=== PATIENT | female | born 1975 | race Caucasian/White ===

== ENCOUNTER 2024-12-09 07:48 | Emergency (ER) | payer OTHER, SELFPAY ==
--- NOTE | ~2024-12-09 | XR_ITS ---
CLINICAL HISTORY: fall and shovel hit r ankle 3 view right ankle Comparison: None Findings: There is widening of the medial ankle mortise. There is subtle cortical lucency along the posterior malleolus. Several small 1 mm linear ossifications are seen adjacent to the lateral malleolus. Subcutaneous edema is seen in the medial ankle and distal leg. IMPRESSION: 1. Subtle cortical lucency along the posterior malleolus, which may represent a fracture. Recommend CT examination of the right ankle for further evaluation. 2. Several small 1 mm linear ossifications adjacent to the lateral malleolus. This can be assessed on the CT exam. 3. Widening of the medial ankle mortise suggestive of ligamentous injury. This document has been electronically signed by: Kris Vance on 12/09/2024 08:26:27
--- NOTE | ~2024-12-09 | CT_ITS ---
CLINICAL HISTORY: pain s p fall CT of the right ankle without contrast Comparison: 12/09/2024 Findings: The dorsal ossification adjacent to the distal tibia is separate from the tibia and may represent sequelae of previous injury. There are no acute fractures. There is widening of the ankle mortise suggesting syndesmotic injury better evaluated with MRI. Regional soft tissue structures are otherwise unremarkable. IMPRESSION: Findings suggesting syndesmotic injury better evaluated with MRI. Correlate clinically for instability. This document has been electronically signed by: Zack Chaudhari MD on 12/09/2024 10:09:19
[2024-12-09 07:57] VITALS: BP 128/52; PULSE 85; RESP 19; TEMP 36.6; O2SAT 99; BMI 23.5
--- NOTE | 2024-12-09 09:17 | ED.LOWEXIN ---
HPI - Extremity Injury (Lower) General Chief Complaint: Extremity Injury, Lower Stated Complaint: fall 12/09, R foot pain Time Seen by Provider: 12/09/24 09:03 Source: patient and RN notes reviewed Mode of arrival: ambulatory Limitations: no limitations History of Present Illness ED Provider: Ary Araujo PA-C HPI Narrative: This is a 49-year-old female, with no medical problems, who presents emergency department with complaints of right ankle pain status post mechanical fall which occurred today. Patient reports that she was shoveling, and slipped on black ice, this caused her to twist her ankle. She denies head strike or LOC. She felt well prior to the fall, no chest pain or shortness for breath prior to the fall. She has been unable to bear weight on her ankle. Denies previous injury to her ankle in the past. Denies taking any medications prior to arrival today. No other complaints or concerns at this time. MD complaint: ankle injury Type of Injury: inversion Place: home Severity: moderate Relieving factors: nothing Exacerbating factors: weight bearing, movement and palpation Context: fall Associated symptoms: swelling Other symptoms: none Related Data Previous Rx's ?Medication ?Instructions ?Recorded acetaminophen 500 mg tablet 500 - 1,000 mg (1 - 2 x 500 mg) PO 12/09/24 (Tylenol Extra Strength) Q8H PRN pain #30 tabs ibuprofen 600 mg tablet 600 mg PO Q6H PRN pain #30 tabs 12/09/24 Allergies Allergy/AdvReac Type Severity Reaction Status Date / Time No Known Allergies Allergy Verified 12/09/24 07:59 Review of Systems Review of Systems: Yes all other systems are reviewed and are negative Constitutional: Constitutional: Reports as per HPI [facility] Past Medical History Attestation statement: The following information was validated with the patient. Social History Social History Advance Directives: No Advance Directives Information Provided: Yes Do you have a plan to hurt others: No Plan Physical Exam Vital Signs: Vital Signs: Last Vital Signs Temp 98 F 12/09/24 11:28 Pulse 85 12/09/24 11:28 Resp 19 12/09/24 11:28 BP 128/52 L 12/09/24 11:28 Pulse Ox 99 12/09/24 11:28 O2 Del Method Room Air 12/09/24 11:28 BMI result Body Mass Index 23.5 Const: General: cooperative, comfortable and no acute distress Orientation/consciousness: patient oriented x3 Limitations: no limitations HEENT: Head: Yes normal to inspection, Yes normocephalic and Yes atraumatic Ears: hearing grossly normal bilaterally General nose exam: Normal external nose present Face and sinus: Yes normal facial exam Mouth: Normal oral and palatal mucosa present, oropharynx normal and moist mucous membranes Throat: Yes posterior oropharynx normal Eyes: General: appearance normal, both eyes and all related structures Eyelids: Yes eyelids normal Conjunctivae: conjunctivae normal Sclerae: sclerae normal Pupils: Equal, round and reactive pupils present EOM: EOMs intact bilaterally Neck: Neck: Yes normal visual inspection, Yes full ROM and Yes no lymphadenopathy Lymphatic: no lymphadenopathy noted Chest: Chest palpation & inspection: normal inspection of the chest Resp: Effort & Inspection: normal respiratory effort and able to speak in complete sentences Cardio: Rate: regular rate Rhythm: regular rhythm GI: Inspection: Yes normal to inspection Skin: General skin exam: no rashes or lesions noted Trauma: no lacerations or abrasions Wounds: no wounds Neuro: General: patient oriented x3 and moves all extremities Cranial nerves: Yes Equal, round and reactive pupils present Extrem: Other: Right ankle with moderate edema noted, patient has tenderness palpation along the medial, lateral malleoli, as well as posterior malleoli. Strong DP pulse. Able to plantar and dorsiflex however range of motion is limited with this. Negative perez sign. General: Yes normal to inspection Right upper extremity: normal to inspection Left upper extremity: normal to inspection Left lower extremity: normal to inspection Course Reevaluation(s) Reevaluation #1: CT ankle revealing Findings suggesting syndesmotic injury better evaluated with MRI. Correlate clinically for instability. Patient placed in stirrup and sugar-tong splint, given crutches. Discussed case with orthopedic PA, Katie Hanson, who is in agreement with plan. Given strict return precautions. Patient stable for discharge. Medications Administered Discontinued Medications Generic Name Dose Route Start Last Admin Trade Name Freq PRN Reason Stop Dose Admin Acetaminophen 975 mg 12/09/24 09:25 12/09/24 09:44 Acetaminophen 325 Mg Tablet PO 12/09/24 09:26 975 mg ONCE ONE Administration Medical Decision Making Medical Decision Making MDM Narrative: This is a 49-year-old female, with no known medical problems, who presents emergency department with complaints of right ankle pain status post mechanical fall which occurred this morning. On arrival, vital signs within normal limits. She is speaking full sentences under no acute distress. No head strike or LOC. She is not on anticoagulation. Right ankle with moderate edema, and tenderness throughout ankle joint, x-rays were obtained which revealed subtle cortical lucency along the posterior malleolus, may represent a fracture, recommending CT. There is several small 1 mm linear ossifications adjacent to the lateral malleolus. She also has widening of the medial ankle mortise suggestive of a ligamentous injury. Will obtain CT for further image. She has no headache, neck pain, dizziness, blurred vision, no head strike or LOC. She is not on anticoagulation therefore head CT, neck CT deferred. Differential Diagnosis Differential Diagnoses: The differential diagnosis associated with the presentation includes Fracture, contusion, internal ligamentous derangement, sprain, strain Radiology Impression Discussion of test interpretation with radiology: I have reviewed the radiologist's reading. Radiologist Impression: CLINICAL HISTORY: fall and shovel hit r ankle 3 view right ankle Comparison: None Findings: There is widening of the medial ankle mortise. There is subtle cortical lucency along the posterior malleolus. Several small 1 mm linear ossifications are seen adjacent to the lateral malleolus. Subcutaneous edema is seen in the medial ankle and distal leg. IMPRESSION: 1. Subtle cortical lucency along the posterior malleolus, which may represent a fracture. Recommend CT examination of the right ankle for further evaluation. 2. Several small 1 mm linear ossifications adjacent to the lateral malleolus. This can be assessed on the CT exam. 3. Widening of the medial ankle mortise suggestive of ligamentous injury. This document has been electronically signed by: Kris Vance on 12/09/2024 08:26:27 Dictated By: Kris Vance MD Findings: The dorsal ossification adjacent to the distal tibia is separate from the tibia and may represent sequelae of previous injury. There are no acute fractures. There is widening of the ankle mortise suggesting syndesmotic injury better evaluated with MRI. Regional soft tissue structures are otherwise unremarkable. IMPRESSION: Findings suggesting syndesmotic injury better evaluated with MRI. Correlate clinically for instability. This document has been electronically signed by: Zack Chaudhari MD on 12/09/2024 10:09:19 Dictated By: Zack Chaudhari MD Procedures Orthopedic Splinting/Casting Injury #1: Side: right Lower Extremity Injury Location: ankle Lower Extremity Immobilizer: posterior splint and stirrup splint Other Orthopedic Equipment: crutches Discharge Plan Discharge Clinical Impression: Ankle fracture, right Patient Disposition: Home, Self-Care Instructions: Ankle Fracture (ED), Crutch Instructions (ED), Splint Care (ED), Ankle Stirrup Splint (ED) Additional Instructions: You were seen in the emergency department after a slip and fall. You fractured your ankle, you may also have injured some of the ligaments in your ankle. We placed you in a splint, please keep splint on until you follow-up with the parking enforcement specialist. Call on Wednesday to make an appointment. Alternate between ibuprofen and or Tylenol as needed for pain. Rest, ice, and elevate your leg, Use crutches, do not apply any weight on your leg. If any new or worsening symptoms occur including but not limited to decreased sensation in your toes, change in color of your toes, worsening pain, please seek emergent care. Prescriptions: New ibuprofen 600 mg tablet 600 mg PO Q6H PRN (Reason: pain) Qty: 30 0RF acetaminophen [Tylenol Extra Strength] 500 mg tablet 500 - 1,000 mg PO Q8H PRN (Reason: pain) Qty: 30 0RF Referrals: [facility] [Provider Group] Interventions: ED Discharge Assessment Last Done: 12/09/24 11:28 Discharge Date/Time: 12/09/24 11:28 Print Language: Sami
[2024-12-09] MEDS: Acetaminophen 325 MG TABLET 975 MG PO (09:44)
--- NOTE | 2024-12-09 09:52 | PC.NURSE ---
Addendum entered by Vale Cordero RN 12/09/24 10:58: right ankle Original Note: patient left ankle noted to be swollen, [employer] intact. ice pack applied with pillow case to left ankle for comfort. patient medicated per MAR
[2024-12-09 11:28] VITALS: BP 128/52; PULSE 85; RESP 19; TEMP 36.6; O2SAT 99
== END 2024-12-09 11:28 | disposition home or self-care (01) ==
PROVIDERS: Emergency Provider Emergency Medicine
DX: S82.891A Other fracture of right lower leg, initial encounter for closed fracture (principal); W00.2XXA Other fall from one level to another due to ice and snow, initial encounter; Y93.H1 Activity, digging, shoveling and raking; Y92.018 Other place in single-family (private) house as the place of occurrence of the external cause; Y99.9 Unspecified external cause status
CPT/HCPCS: 29125; 73610; 73700; 99284

== ENCOUNTER → 2024-12-09 08:05 | Outpatient (BNV) | payer MEDICAID, SELFPAY | PROVIDERS: Visit Provider Radiology Vascular & Interventional Radiology | DX: R52 Pain, unspecified (principal); M61.59 Other ossification of muscle, multiple sites | CPT/HCPCS: 73610; 73700 ==